=== PATIENT | male | born 1970 | race Caucasian/White ===

== ENCOUNTER 2020-12-18 16:15 | Emergency (ER) | payer SELFPAY ==
[~2020-12-18] VITALS: Ht 180.3 cm; Wt 80.7 kg
[2020-12-18 16:20] VITALS: BP 161/95
--- NOTE | 2020-12-18 16:28 | NUR ---
Contacted [facility] regarding patient's depression and anxiety and to see if Mental health screening was appropriate.
--- NOTE | 2020-12-18 16:30 | ED Psychosocial ---
General Stated Complaint: DEPRESSION,ANXIETY History of Present Illness Date Seen by Provider: Dec 18, 2020 Time Seen by Provider: 16:30 Initial Comments 50-year-old male presents with a longstanding history of depression and social anxiety. Patient reports he has been having issues for years. Patient's presents because he has been missing work because of his social anxiety. Patient does have a note from his primary care provider that states he could miss up to 3 days a week due to social anxiety. Patient does not have any homicidal or suicidal ideations. Patient reports when he saw his psychiatrist last he was told he could come to the ER for an evaluation. Patient was started on Zoloft and has not taken any since he was prescribed it. Patient has an appointment on the for outpatient evaluation. Patient did not call mental health for a sooner outpatient evaluation. Patient reports he is here because he is just indecisive with a lot of stuff. Patient is not sure what he is hoping to accomplish with an ER visit. Allergies and Home Medications Allergies Coded Allergies: No Known Drug Allergies (Unverified , 12/18/20) Patient Home Medication List Home Medication List Reviewed: Yes Review of Systems Constitutional: No chills, No fever EENTM: no symptoms reported Respiratory: no symptoms reported Cardiovascular: no symptoms reported Gastrointestinal: no symptoms reported Genitourinary: no symptoms reported Musculoskeletal: no symptoms reported Skin: no symptoms reported Psychiatric/Neurological: See HPI Past Wwhkwmg-Dtvxvc-Fzwtik Hx Past Med/Social Hx: Reviewed Nursing Past Med/Soc Hx Physical Exam Capillary Refill : Height, Weight, BMI Height: '" Weight: lbs. oz. kg; BMI Method: General Appearance: no apparent distress HEENT: PERRL/EOMI Respiratory: lungs clear Cardiovascular: normal peripheral pulses, regular rate, rhythm Extremities: normal range of motion, non-tender Appearance/Memory: disheveled Behavior/Eye Contact: cooperative, avoids eye contact Thoughts/Hallucinations: other (Depressed but no acute episodes or signs of suicidal homicide thoughts he denies any suicidal homicidal thoughts or plans at this time) Skin: normal color, warm/dry Progress/Results/Core Measures Progress Progress Note : Time: 17:20 Progress Note We did call and attempt to make an appointment for the patient on Monday12/21/20 but he refused. Discussed the need for patient to start taking his Zoloft to help him with his depression and social anxiety. We did have mental health screener evaluate him and also feels that he is safe for discharge and he should start his medication. Patient has an appointment once again on 01/01 and did not want any further appointment made Departure Impression Primary Impression: Depression Qualified Codes: F32.9 - Major depressive disorder, single episode, unspecified Disposition: 01 HOME, SELF-CARE Condition: Stable Departure-Patient Inst. Referrals: RYNE BENNETT MD (PCP/Family) Primary Care Physician Patient Instructions: Depression, Adult ED, Panic Disorder (DC) Add. Discharge Instructions: Please start taking your already prescribed Zoloft Please call mental health provider for an earlier appointment if needed AARON COMBS DO Dec 18, 2020 16:30
--- NOTE | 2020-12-18 16:48 | NUR ---
Contacted by Mo at [facility] at this time. Determined screening was not necessary due to patient denying suicidal or homicidal thoughts. Mo was will to speak to the patient on the phone. He recommended that the patient follows up with his therapist and begins taking his medication that was prescribed by his therapist.
--- NOTE | 2020-12-18 17:25 | NUR ---
Spoke to patient at this time. He is agreeable to being discharged and following up with his therapist. I encouraged the patient to start taking his antidpressant that was prescribed by his therapist, keep his scheduled therapy appointment, and to call and see if he can get into see her sooner if need be.
== END 2020-12-18 17:27 | disposition home or self-care (01) ==
LOC: ER FS 16:17
DX: F32.9 Major depressive disorder, single episode, unspecified (principal); F41.9 Anxiety disorder, unspecified
CPT/HCPCS: 99283

== ENCOUNTER 2022-10-24 12:43 | Emergency (ER) | payer SELFPAY ==
[~2022-10-24] VITALS: Ht 180.3 cm; Wt 74.8 kg
[2022-10-24 13:13] VITALS: BP 140/97
--- NOTE | 2022-10-24 13:30 | ED EENT ---
History of Present Illness General Chief Complaint: Oral/Throat Problems Stated Complaint: SORE THROAT Nursing Triage Note: PT AMBULATE TO ROOM FS02 WITHOUT DIFFICULTY WITH C/O SORE THROAT. PT REPORTS BEING SEEN AT URGENT CARE YESTERDAY AND TOLD HE HAS A VIRAL INFECTION. PT STATES THEY DID NOT SWAB HIM FOR ANYTHING. PT REPORTS COUGH AND PAIN WITH SWALLOWING. Source: patient Exam Limitations: no limitations History of Present Illness Date Seen by Provider: Oct 24, 2022 Time Seen by Provider: 13:00 Initial Comments Patient is a 52-year-old male who presents with sore throat for the past 24 hours with difficulty swallowing saliva secondary to pain. He also presents with nonproductive cough and intermittent fever since yesterday. Patient denies chills patient was evaluated yesterday at [facility] and told that he had viral syndrome and was instructed to take ibuprofen but states he was unable to do so due to painful swallowing. Timing/Duration: gradual Severity: mild Location: other Prearrival Treatment: other Modifying Factors: Improves With Other Allergies and Home Medications Allergies Coded Allergies: No Known Drug Allergies (Unverified , 12/18/20) Patient Home Medication List Home Medication List Reviewed: Yes Review of Systems Review of Systems Constitutional: see HPI Eyes: See HPI Ears: See HPI Nose: see HPI Mouth: see HPI Throat: see HPI Respiratory: see HPI Cardiovascular: see HPI Gastrointestinal: see HPI Musculoskeletal: see HPI Skin: see HPI Neurological: See HPI Hematologic/Lymphatic: See HPI Immunological/Allergic: see HPI All Other Systems Reviewed Negative Unless Noted: No Past Vqiajiv-Dghdep-Kmgphg Hx Patient Social History Tobacco Use?: No Substance use?: No Alcohol Use?: No Pt feels they are or have been: No Seasonal Allergies Seasonal Allergies: No Past Medical History Surgery/Hospitalization HX: DM Surgeries: No Respiratory: No Cardiac: No Neurological: No Genitourinary: No Gastrointestinal: No Musculoskeletal: No Endocrine: Yes Diabetes, Insulin dep HEENT: No Cancer: No Psychosocial: Yes Anxiety, Depression Integumentary: No Blood Disorders: No Physical Exam Vital Signs Vital Signs - First Documented 10/24/22 13:05 Temp 36.0 Pulse 100 Resp 17 B/P (MAP) 118/91 (100) O2 Delivery Room Air Height, Weight, BMI Height: '" Weight: lbs. oz. kg; 23.00 BMI Method: General Appearance: WD/WN, no apparent distress Eyes: bilateral eye normal inspection, bilateral eye EOMI Ears: bilateral ear auricle normal, bilateral ear canal normal, bilateral ear TM normal, bilateral ear erythema Nose: normal inspection Mouth/Throat: normal mouth inspection, excessive drooling Neck: non-tender, full range of motion, supple Cardiovascular: normal peripheral pulses, regular rate, rhythm, no edema Respiratory: chest non-tender Gastrointestinal: soft Neurologic/Psychiatric: oriented x 3 Progress/Results/Core Measures Results/Orders Lab Results Laboratory Tests Test 10/24/22 13:00 Range/Units Influenza Type A (RT-PCR) Not Detected Not Detecte Influenza Type B (RT-PCR) Not Detected Not Detecte SARS-CoV-2 RNA (RT-PCR) Detected H Not Detecte Group A Streptococcus Screen NEGATIVE NEGATIVE My Orders Orders - KEMAR JUNIOR DO Covid 19 Inhouse Test (10/24/22 12:59) Rapid Strep A Screen (10/24/22 12:59) Influenza A And B By Pcr (10/24/22 12:59) Isolation Central Supply Req (10/24/22 12:59) Dexamethasone Injection (Decadron Injec (10/24/22 13:30) Medications Given in ED Current Medications Medications Dose Ordered Sig/Desire Route Start Time Stop Time Status Last Admin Dose Admin Dexamethasone Sodium Phosphate 10 mg ONCE ONCE IM 10/24/22 13:30 10/24/22 13:31 10/24/22 13:28 10 MG Vital Signs/I&O 10/24/22 13:05 Temp 36.0 Pulse 100 Resp 17 B/P (MAP) 118/91 (100) O2 Delivery Room Air Blood Pressure Mean: 100 Departure Communication (Admissions) Steroid injection given sore throat Will obtain flu COVID and strep throat testing with anticipated supportive care. COVID positive. Impression Primary Impression: COVID-19 Disposition: 01 HOME, SELF-CARE Condition: Stable Departure-Patient Inst. Decision time for Depature: 13:32 Referrals: RYNE BENNETT MD (PCP) Primary Care Physician Patient Instructions: COVID-19 Overview Add. Discharge Instructions: You were evaluated in the emergency department for cough, sore throat body aches. COVID study was performed and is positive. Please go home and take newly prescribed medications as directed and follow-up with your PCP in 3 to 5 days for reevaluation if symptoms persist. Return to the ED if new or worsening symptoms. All discharge instructions reviewed with patient and/or family. Voiced understanding. Scripts Hydrocodone/Acetaminophen (Hydrocodone-Acetamin 5-325 mg) 5 Mg-325 Mg Tablet 1 TAB PO Q4H PRN for PAIN-MODERATE (5-7), #10 TAB Prov: KEMAR JUNIOR DO 10/24/22 Guaifenesin (Mucinex) 1,200 Mg Tab.er.12h 1200 MG PO BID, #10 TAB Prov: KEMAR JUNIOR DO 10/24/22 Prednisone (Prednisone) 20 Mg Tab 40 MG PO DAILY, #6 TAB 0 Refills Prov: KEMAR JUNIOR DO 10/24/22 KEMAR JUNIOR DO Oct 24, 2022 13:30
[2022-10-24] MEDS ORDERED: PRD20T PO (13:35)
[2022-10-24] MEDS ORDERED: ACHD5005 PO (13:35)
[2022-10-24] MEDS ORDERED: GUAI120013 PO (13:35)
== END 2022-10-24 13:45 | disposition home or self-care (01) ==
LOC: EDUNIT# 12:43 → ER FS 12:45
DX: U07.1 COVID-19 (principal); E11.9 Type 2 diabetes mellitus without complications; Z79.4 Long term (current) use of insulin
CPT/HCPCS: 87430; 87636; 99284